=== PATIENT | male | born 1955 | race Caucasian/White ===

== ENCOUNTER 2016-03-28 17:00 | Inpatient (IN) | payer OTHER ==
[2016-03-07 10:40] VITALS: BMI 38.4
[2016-03-07 11:28] VITALS: BP_SYST 142; TEMP 98
[~2016-03-28] VITALS: Ht 182.9 cm; Wt 128.4 kg
[2016-04-04] VITALS (25 sets, daily range): BP systolic 123–180; RESP 14–20; TEMP 97.7–99.9; Ht 182.9 cm; Wt 128.4 kg
[2016-04-04] MEDS ORDERED: ROPIVACAINE 0.5% 139 MG, EPINEPHrine 1:1,000 0.2 MG, KETOROLAC INJ 30 MG, MORPHINE 10 MG SUBQ ONE ×4 (06:40)
[2016-04-04] MEDS ORDERED: CEFAZOLIN 3,000 MG in SODIUM CHLORIDE 0.9% 100 ML IV ONE (06:40)
[2016-04-04] MEDS ORDERED: Tranexamic Acid 100 MG in SODIUM CHLORIDE 0.9% 100 ML IV ONE ×4 (06:40)
[2016-04-04] MEDS ORDERED: MEPERIDINE 25 MG/ML IV ONE (06:55)
[2016-04-04] MEDS ORDERED: LIDOCAINE 1% BUFFERED 1 ML SYR INTRADERM PRN (06:55)
[2016-04-04] MEDS ORDERED: GLYCOPYRROLATE 0.2 MG/ML VIAL IV ONE ×2 (06:55→13:33)
[2016-04-04] MEDS ORDERED: MIDAZOLAM 2 MG/2 ML INJ IV ONE ×2 (06:55→08:10)
[2016-04-04] MEDS ORDERED: LACT RINGERS 1,000 ML IV SCH (06:55)
[2016-04-04] MEDS ORDERED: LIDOCAINE 1% MDV 20 ML ONE (07:52)
[2016-04-04] MEDS ORDERED: MIDAZOLAM 2 MG/2 ML INJ ONE (07:53)
[2016-04-04] MEDS ORDERED: ONDANSETRON 4 MG VIAL IV PRN ×2 (09:00→10:30)
[2016-04-04] MEDS ORDERED: MORPHINE 2 MG/ML SYR IV PRN ×2 (09:00→10:30)
[2016-04-04] MEDS ORDERED: OXYCODONE 5 MG TAB PO PRN (09:00)
[2016-04-04] MEDS ORDERED: MORPHINE 4 MG/ML SYR IV PRN ×2 (09:00→10:30)
[2016-04-04] MEDS ORDERED: MEPERIDINE 25 MG/ML IV PRN (09:00)
[2016-04-04] MEDS ORDERED: DILAUDID 1 MG/ML AMP IV PRN (09:00)
[2016-04-04] MEDS ORDERED: ROPIVACAINE 5 MG/ML 30 ML EPIDURAL ONE (10:04)
[2016-04-04] MEDS ORDERED: DIPHENHYDRAMINE 25 MG CAP PO PRN (10:30)
[2016-04-04] MEDS ORDERED: TEMAZEPAM 15 MG CAP PO PRN (10:30)
[2016-04-04] MEDS ORDERED: ACETAMINOPHEN 325 MG TAB PO PRN (10:30)
[2016-04-04] MEDS ORDERED: KETOROLAC 30 MG/ML VIAL IV PRN (10:30)
[2016-04-04] MEDS: MAG HYDROX 30 ML UDC PO SCH (13:03)
[2016-04-04] MEDS: DOCUSATE SOD 100 MG CAP PO SCH ×2 (13:03→21:43)
[2016-04-04] MEDS: LACT RINGERS 1,000 ML IV SCH ×2 (13:10→21:51)
[2016-04-04] MEDS ORDERED: BACITRACIN 50,000 UNITS INJ IRRIG ONE (13:24)
[2016-04-04] MEDS ORDERED: FENTANYL 100 MCG/2 ML AMP IV ONE (13:33)
[2016-04-04] MEDS ORDERED: PROPOFOL 20 ML PER ML IV ONE (13:33)
[2016-04-04] MEDS ORDERED: SUCCINYLCHOLINE 20 MG/ML VL IV ONE (13:33)
[2016-04-04] MEDS ORDERED: ACETAMINOPHEN 1,000 MG/100 ML IV ONE (13:33)
[2016-04-04] MEDS ORDERED: LIDOCAINE 2% SYR 5 ML IV ONE (13:33)
[2016-04-04] MEDS ORDERED: LABETALOL 100 MG/20 ML VIAL IV PUSH ONE (13:33)
[2016-04-04] MEDS ORDERED: NEOSTIGMINE 10 MG/10 ML VIAL IV ONE (13:33)
[2016-04-04] MEDS ORDERED: ROCURONIUM 50 MG VIAL IV ONE (13:33)
[2016-04-04] MEDS ORDERED: ONDANSETRON 4 MG VIAL IV PUSH ONE (13:33)
[2016-04-04] MEDS ORDERED: DILAUDID 1 MG/ML AMP IV ONE (13:33)
[2016-04-04] MEDS: POLYETHYLENE GLYCOL 17 GM PACKET PO SCH (14:23)
[2016-04-04] MEDS: SENNA 8.6 MG TAB PO SCH ×2 (14:23→21:43)
[2016-04-04] MEDS: CEFAZOLIN 2,000 MG in SODIUM CHLORIDE 0.9% 100 ML IV SCH ×2 (14:23→21:44)
[2016-04-05] VITALS (8 sets, daily range): BP systolic 146–172; RESP 16–22; TEMP 98.2–99.7
[2016-04-05] MEDS: CEFAZOLIN 2,000 MG in SODIUM CHLORIDE 0.9% 100 ML IV SCH ×2 (01:58→08:09)
[2016-04-05] MEDS ORDERED: LABETALOL 100 MG/20 ML VIAL IV PUSH ONE (04:15)
[2016-04-05] MEDS: FONDAPARINUX 2.5 MG SYR SUBQ SCH (05:46)
[2016-04-05] MEDS: DOCUSATE SOD 100 MG CAP PO SCH ×2 (08:04→21:33)
[2016-04-05] MEDS: SENNA 8.6 MG TAB PO SCH ×2 (08:04→21:33)
[2016-04-05] MEDS: TELMISARTAN 40 MG TAB PO SCH (08:05)
[2016-04-05] MEDS: MAG HYDROX 30 ML UDC PO SCH (08:06)
[2016-04-05] MEDS: POLYETHYLENE GLYCOL 17 GM PACKET PO SCH (08:06)
[2016-04-05] MEDS ORDERED: ERGOCALCIFEROL 50,000 UNITS (1.25 MG) CAP PO SCH (09:00)
[2016-04-05] MEDS: CYANOCOBALAMIN 1000 MCG/ML VIAL IM SCH (11:10)
[2016-04-05] MEDS ORDERED: FLEET ENEMA 132 ML BTL RECTAL PRN (12:35)
[2016-04-05] MEDS ORDERED: BISACODYL 10 MG SUPP RECTAL PRN (12:35)
[2016-04-06 02:33] VITALS: BP_SYST 152; RESP 16; TEMP 99.1
[2016-04-06] MEDS: FONDAPARINUX 2.5 MG SYR SUBQ SCH (06:16)
[2016-04-06 07:38] VITALS: BP_SYST 144; RESP 20; TEMP 99.7
[2016-04-06] MEDS: TELMISARTAN 40 MG TAB PO SCH (08:38)
[2016-04-06] MEDS: SENNA 8.6 MG TAB PO SCH (08:39)
[2016-04-06] MEDS: MAG HYDROX 30 ML UDC PO SCH (08:39)
[2016-04-06] MEDS: CYANOCOBALAMIN 1000 MCG/ML VIAL IM SCH (08:39)
[2016-04-06] MEDS: POLYETHYLENE GLYCOL 17 GM PACKET PO SCH (08:39)
[2016-04-06] MEDS: DOCUSATE SOD 100 MG CAP PO SCH (08:39)
[2016-04-06 11:23] VITALS: BP_SYST 159; RESP 20; TEMP 99.5
[2016-04-06 15:19] VITALS: BP_SYST 160; RESP 20; TEMP 99
[2016-04-06 17:10] VITALS: BP_SYST 160; RESP 20; TEMP 99
== END 2016-04-06 17:58 | disposition home health service (06) | DRG 470 ==
LOC: ENRESERVTM → EDBD → ENRESERVDT → ENPENDDIS 04-04 06:30 → SDS 04-04 06:30 → 2NO 04-04 11:01
PROVIDERS: ADMIT Internal Medicine; ATTEND Internal Medicine
PROC: 3E0T3CZ (ICD-10-PCS; 2016-04-04)
PROC: 0SRD0J9 Replacement of Left Knee Joint with Synthetic Substitute, Cemented, Open Approach (ICD-10-PCS; principal; 2016-04-04 07:39)
DX: M17.12 Unilateral primary osteoarthritis, left knee (principal); I10 Essential (primary) hypertension; E66.9 Obesity, unspecified; Z68.38 Body mass index [BMI] 38.0-38.9, adult
CPT/HCPCS: 80053; 82306; 82607; 82746; 84439; 84443; 85025; 86850; 86900; 86901; 94762; 94799